=== PATIENT | male | born 1960 | race Caucasian/White ===

== ENCOUNTER 2017-07-29 08:00 | Outpatient (CLI) | payer MEDICAID ==
[2017-07-29 18:22] LABS: BILIRUBIN,URINE NEGATIVE (NEGATIVE); GLUCOSE, URINE (UA) NEGATIVE (NEGATIVE); KETONES,URINE (UA) NEGATIVE (NEGATIVE); LEUKOCYTE ESTERASE, URINE NEGATIVE (NEGATIVE); NITRITE,URINE NEGATIVE (NEGATIVE); OCCULT BLOOD,URINE LARGE (NEGATIVE); PROTEIN,URINE 30 mg/dL (NEGATIVE); UROBILINOGEN,URINE 0.2 (NORMAL) E.U./dL (NORMAL)
[2017-07-29 18:40] LABS: AMORPHOUS SEDIMENT,UR Marked /LPF; BACTERIA,URINE Few /HPF (None Seen); CLARITY,URINE CLOUDY (CLEAR); SQUAMOUS EPITHELIAL CELL,UR FEW Squamous (<= Few)
== END 2017-07-29 08:01 | disposition home or self-care (01) ==
LOC: LAB.R 08:00
PROVIDERS: ATTEND Nurse Practitioner Family
DX: R31.9 Hematuria, unspecified (principal); R39.15 Urgency of urination
CPT/HCPCS: 81001

== ENCOUNTER 2020-03-11 09:05 | Day surgery (SDC) | payer MEDICAID ==
[2020-03-11] MEDS ORDERED: PROPOFOL 200 MG/20 ML VIAL IVP ONE (09:06)
[2020-03-11] MEDS ORDERED: fentaNYL 100 MCG/2 ML VIAL IVP ONE (09:06)
[2020-03-11] MEDS ORDERED: KETAMINE 500 MG/10 ML VIAL IVP ONE (09:06)
[2020-03-11] MEDS ORDERED: LIDOCAINE-MPF 2% 5 ML VIAL IM ONE (09:06)
[2020-03-11] MEDS ORDERED: LACTATED RINGERS 1,000 ML IV ONE ×2 (09:10→10:56)
[2020-03-11] MEDS ORDERED: METOCLOPRAMIDE 10 MG/2 ML VIAL IVP PRN (09:29)
[2020-03-11] MEDS ORDERED: ONDANSETRON 4 MG/2 ML VIAL IVP PRN (09:29)
[2020-03-11] MEDS ORDERED: MORPHINE 2 MG/ML CARPUJECT IVP PRN (09:29)
[2020-03-11] MEDS ORDERED: NALOXONE 0.4 MG/ML VIAL IVP PRN (09:29)
[2020-03-11] MEDS ORDERED: ATROPINE ABBOJECT 1 MG/10 ML SYRINGE IVP PRN (09:29)
[2020-03-11] MEDS ORDERED: ePHEDrine 50 MG/ML VIAL IVP PRN (09:29)
--- NOTE | 2020-03-11 09:29 | ANESTHESIA ---
Pre-Anesthesia VS, & Labs - Diagnosis Ileostomy status, hx of rectal cancer - Procedure colonoscopy Vital Signs: Temp Pulse Resp BP Pulse Ox 36.6 C 87 16 133/85 H 96 03/11/20 09:17 03/11/20 09:17 03/11/20 09:17 03/11/20 09:17 03/11/20 09:17 Height 5 ft 9 in Weight (kg) 79.1 kg Body Mass Index 25.1 - NPO >8 hours - Lab Results Lab results reviewed: Yes Home Medications and Allergies PARoxetine HCl [Paxil] 10 mg PO DAILY 04/14/15 Allergies/Adverse Reactions: Allergies Allergy/AdvReac Type Severity Reaction Status Date / Time No Known Drug Allergies Allergy Verified 11/23/19 15:13 Anes History & Medical History - Anesthetic History Anesthesia Complications: reports: No previous complications Family history of Anesthesia Complications: Denies Family history of Malignant Hyperthermia: Denies - Medical History Cardiovascular: reports: None Pulmonary: reports: None Gastrointestinal: reports: GI bleed, Colon polyps, Hemorrhoids, Other Urinary: reports: Kidney stones Musculoskeletal: reports: None Endocrine/Autoimmune: reports: None Skin: reports: None - Surgical History General: Bowel surgery Urologic: Ureterolithotomy (stones) Orthopedic: Other Exam General: Alert, Oriented x3, Cooperative, No acute distress Dental: WNL (some chipped teeth on top and bottom front) Mouth Openin Fingerbreadth Neck Mobility: Normal Mallampati classification: II Thyromental Distance: 4-6 cm Respiratory: Lungs clear, Normal breath sounds, No respiratory distress, No accessory muscle use Cardiovascular: Regular rate, Normal S1, Normal S2, No murmurs Plan Anesthesia Type: MAC Consent for Procedure(s) Verified and Reviewed: Yes Code Status: Attempt Resuscitation ASA classification: 2-Mild systemic disease Is this case an emergency?: No
[2020-03-11] MEDS ORDERED: LACTATED RINGERS 1,000 ML IV SCH (10:00)
[2020-03-11] MEDS: fentaNYL 100 MCG/2 ML VIAL IVP PRN ×2 (11:11→11:43)
[2020-03-11] MEDS ORDERED: fentaNYL 100 MCG/2 ML VIAL ONE (11:14)
[2020-03-11] MEDS ORDERED: HYDROmorphone 1 MG/ML CARPUJECT ONE (11:15)
[2020-03-11] MEDS: HYDROmorphone 0.5 MG/0.5 ML SYRINGE IVP PRN ×2 (11:20→11:30)
--- NOTE | 2020-03-11 11:26 | ANESTHESIA POST OP EVALUATION ---
Anesthesia Post Eval - Post Anesthesia Eval Vitals: Last Vital Signs Temp 36.6 C 03/11/20 09:17 Pulse 87 03/11/20 09:17 Resp 16 03/11/20 09:17 BP 133/85 H 03/11/20 09:17 Pulse Ox 96 03/11/20 09:17 CV Function Including HR & BP: positive: Stable Pain Control: positive: Satisfactory Nausea & Vomiting: positive: Negative Mental Status: positive: Patient Participates Respiratory Status: Airway Patent Hydration Status: Satisfactory Anesthesia Complications: positive: None
--- NOTE | 2020-03-11 11:48 | XRAY Report ---
PROCEDURE: Abdomen 1 View X-Ray INDICATIONS: diagnostic post colonoscopy TECHNIQUE: 1 view of the abdomen were acquired. COMPARISON: Correlation is made with prior CT examination 04/07/2018. FINDINGS: Surgical changes and devices: A right lower quadrant postoperative clips can be seen. There is a rect al in the stomach staple line. Bowel: No pneumoperitoneum. The bowel gas pattern is normal. Soft tissues: No masses; visualized solid organ contours appear normal in size. No suspicious abdom inal calcifications. Bones: No suspicious bony abnormalities. Age-appropriate degenerative changes are seen. Minimal de xtroconvex cervical lumbar sclerotic curvature is seen. IMPRESSION: No significant post colonoscopy abnormality is seen by plain film. If clinically appropr iate, please consider a follow-up CT. There is a right lower quadrant clip seen. A rectal anastomotic staple line is seen. Reviewed by: Aron Carreno MD on 03/11/2020 10:46 AM REAGAN Approved by: Aron Carreno MD on 03/11/2020 10:46 AM [id number] Station ID: [id number]
[2020-03-11 12:32] VITALS: BP 136/76
== END 2020-03-11 09:06 | disposition home or self-care (01) ==
LOC: SDS 09:05
PROVIDERS: ATTEND Surgery
DX: Z08 Encounter for follow-up examination after completed treatment for malignant neoplasm (principal); Z90.49 Acquired absence of other specified parts of digestive tract; Z85.048 Personal history of other malignant neoplasm of rectum, rectosigmoid junction, and anus; Z93.2 Ileostomy status; Z93.3 Colostomy status; Z98.0 Intestinal bypass and anastomosis status; K52.89 Other specified noninfective gastroenteritis and colitis
CPT/HCPCS: 45378; 74018; J1170; J7120

== ENCOUNTER 2024-02-29 23:03 | Outpatient (CLI) | payer MEDICAID | END 2024-02-29 23:04 | disposition critical access hospital (66) | LOC: EMS 23:03 | DX: R10.32 Left lower quadrant pain (principal); M54.50 Low back pain, unspecified; R11.2 Nausea with vomiting, unspecified; I10 Essential (primary) hypertension; Z93.3 Colostomy status | CPT/HCPCS: A0425; A0427; A0999 ==

== ENCOUNTER 2024-02-29 23:31 | Emergency (ER) | payer MEDICAID ==
--- NOTE | 2024-02-29 23:38 | ED Physician Documentation ---
History of Present Illness - Stated complaint Stated Complaint: LEFT FLANK PAIN - History obtained from History obtained from: Patient - Additonal information Additional information: HPI from patient. Patient c/o left-sided abdominal pain, sudden onset while at home at rest approximately 3 hours [employer]. No inciting event. He denies h/o similar symptoms. The pain was waxing and waning and he took a bath thinking this might help but the pain became worse and now radiating to left flank. He then called 911. Shortly before EMS arrival, patient says he induced vomiting hoping this would help; after vomiting he felt much improved. Past medical history includes colorectal CA, has ileostomy due to this. He is noticing during this HPI that he has far less stool output into the ostomy bag than he expected. Had brief nausea, vomiting when pain was most severe. PD PAST MEDICAL HISTORY - Past Medical History Cardiovascular: None Respiratory: None Endocrine/Autoimmune: None GI: GI bleed, Colon polyps, Hemorrhoids, Other : Kidney stones HEENT: None Psych: Depression, Anxiety Musculoskeletal: None Derm: None - Past Surgical History General: Bowel surgery Ortho: Other - Present Medications Home Medications: Ambulatory Orders Medication Instructions Recorded Confirmed PARoxetine HCL [Paxil] 20 mg PO DAILY #30 tablet 11/20/21 12/23/23 Tamsulosin [Flomax] 0.4 mg PO DAILY #10 cap 03/01/24 oxyCODONE [Roxicodone] 5 - 10 mg PO Q6H PRN #20 tablet 03/01/24 - Allergies Allergies/Adverse Reactions: Allergies Allergy/AdvReac Type Severity Reaction Status Date / Time No Known Drug Allergies Allergy Verified 02/29/24 23:42 PD ED PE NORMAL - Vitals Vital signs reviewed: Yes - General General: Alert and oriented X 3, No acute distress, Well developed/nourished - HEENT HEENT: Moist mucous membranes - Cardiac Cardiac: RRR, No murmur - Respiratory Respiratory: No respiratory distress, Clear bilaterally - Abdomen Abdomen: Normal bowel sounds, Soft, Non tender, Non distended, Other (ostomy bag in place, no stool nor gas in ostomy bag) Results - Vitals Vitals: Vital Signs - 24 hr 02/29/24 03/01/24 03/01/24 23:37 00:17 02:00 Temperature 36.4 C L Heart Rate 73 80 68 Respiratory 19 18 18 Rate Blood Pressure 180/104 H 162/91 H 169/99 H O2 Saturation 97 98 99 03/01/24 06:38 Temperature Heart Rate 79 Respiratory 18 Rate Blood Pressure 139/87 H O2 Saturation 95 Oxygen O2 Source Room air - Labs Labs: Laboratory Tests 02/29/24 02/29/24 03/01/24 23:52 23:52 02:32 WBC 8.6 RBC 4.47 L Hgb 13.9 L Hct 41.4 L MCV 92.6 MCH 31.1 H MCHC 33.6 RDW 13.7 Plt Count 402 MPV 9.1 Neut # (Auto) 7.2 H Lymph # (Auto) 0.7 L Crawford # (Auto) 0.7 Eos # (Auto) 0.0 Baso # (Auto) 0.1 Absolute Nucleated RBC 0.00 Nucleated RBC % 0.0 Sodium 138 Potassium 4.3 Chloride 101 Carbon Dioxide 24 Anion Gap 13.0 BUN 11 Creatinine 1.1 Estimated GFR (MDRD) 68 L Glucose 142 H Calcium 9.5 Total Bilirubin 0.6 AST 18 ALT 15 Alkaline Phosphatase 66 Total Protein 6.5 Albumin 4.5 Globulin 2.0 L Albumin/Globulin Ratio 2.3 H Lipase 12 Urine Color YELLOW Urine Clarity CLEAR Urine pH 6.5 Ur Specific [place] 1.010 Urine Protein NEGATIVE Urine Glucose (UA) NEGATIVE Urine Ketones NEGATIVE Urine Occult Blood MODERATE H Urine Nitrite NEGATIVE Urine Bilirubin NEGATIVE Urine Urobilinogen 0.2 (NORMAL) Ur Leukocyte Esterase TRACE H Urine RBC 6-10 H Urine WBC 0-3 Ur Squamous Epith Cells NONE SEEN Urine Bacteria None Seen Ur Microscopic Review INDICATED Urine Culture Comments INDICATED - Rads (name of study) CT A/P Relevant Findings:: Prelim report reviewed, See rad report PD Medical Decision Making - ED course Complexity details: reviewed results, re-evaluated patient, considered differential, d/w patient ED course: No concerning nor diagnostic findings on CBC, ER abdominal panel. UA with 6-10 RBC/hpf. CT A/P shows 3mm calculus in proximal left ureter with mild left hydronephrosis. He is in NAD throughout ED stay, the pain having nearly resolved shortly [employer]. Results d/w patient. He is given 0.4 mg tamsulosin PO, take-home pack of percocet, and rx for both of these medications electronically submitted to patient's pharmacy of choice. Return precautions reviewed, advised to seek follow up with urology. Departure - Departure Disposition: 01 Home, Self Care Clinical Impression: Renal colic on left side Condition: Good Instructions: ED Stone Renal W Colic Follow-Up: New Quezada MD [Provider Admit Priv/Credential] - Prescriptions: Tamsulosin [Flomax] 0.4 mg PO DAILY #10 cap oxyCODONE [Roxicodone] 5 - 10 mg PO Q6H PRN #20 tablet PRN Reason: Pain >8 Comments: The CT scan shows a 3 mm left-sided kidney stone. This would account for your symptoms. I have electronically submitted prescriptions for oxycodone (narcotic/opiate pain medication) and [facility] [place]. The tamsulosin increases the chances that you will pass the kidney stone (without needing a procedure) and can help decrease the time it takes to pass the kidney stone. You should seek follow-up with a urologist. Within these discharge instructions is the name, office address, and office phone number for the on-call urologist for [facility] (Dr. Quezada). You can contact that office to see if they can accommodate a follow-up appointment. If this cannot be arranged, you can instead contact your primary care provider and/or your insurance provider to inquire about the referral process to a urologist. I am prescribing a short course of narcotic pain medication for you. These are potentially dangerous and addictive medications that should be used carefully. These medications may constipate you. Take an cjxm-tvb-tivrdvl stool softener (docusate) twice daily with plenty of water while taking these medications. If you go 24 hours without a bowel movement, take [id number] miralax, per package instructions. Do not drink or drive while taking these medications. If you received narcotic or sedating medications while in the emergency department, do not drive for 24 hours. Store this medication in a safe, secure place and out of reach of children. It is a violation of federal law to give or sell this medication to another person or to use in a manner other than prescribed. The ED will not refill narcotic prescriptions, including prescriptions lost or stolen. To dispose of unwanted medications: 1. [facility] at [address] in [place] has a medication drop box. They accept prescription medications (in pill form) Saturday through Saturday 9:00 a.m. to 5:00 p.m. 2. [facility] [employer] accepts prescription medications (in pill form only) for disposal year round. Call for more information. 3. Contact the [facility] for the next [facility] sponsored prescription drug collection event. , [phone], or [phone]; Forms: PCP List Discharge Date/Time: 03/01/24 07:29
[2024-03-01 01:09] LABS: BASOPHILS # (AUTO) 0.1 10^3/uL (0.0-0.1); BASOPHILS % (AUTO) 0.6 %; EOSINOPHILS % (AUTO) 0.1 %; HCT - HEMATOCRIT 41.4 % (42.0-52.0); HGB - HEMOGLOBIN 13.9 g/dL (14.0-18.0); LYMPHOCYTES # (AUTO) 0.7 10^3/uL (1.5-3.5); LYMPHOCYTES % (AUTO) 7.6 %; MEAN CORPUSCULAR HEMOGLOBIN 31.1 pg (27.0-31.0); MEAN CORPUSCULAR HGB CONC 33.6 g/dL (32.0-36.0); MEAN CORPUSCULAR VOLUME 92.6 fL (80.0-94.0); MEAN PLATELET VOLUME 9.1 fL (7.4-11.4); MONOCYTES # (AUTO) 0.7 10^3/uL (0.0-1.0); MONOCYTES % (AUTO) 7.8 %; NEUTROPHILS # (AUTO) 7.2 10^3/uL (1.5-6.6); NEUTROPHILS % (AUTO) 83.3 %; PLT - PLATELET COUNT 402 10^3/uL (130-450); RED BLOOD COUNT 4.47 10^6/uL (4.70-6.10); RED CELL DISTRIBUTION WIDTH 13.7 % (12.0-15.0); WHITE BLOOD COUNT 8.6 x10^3/uL (4.8-10.8)
[2024-03-01] MEDS ORDERED: iohexoL-300 100 ML VIAL ONE (01:19)
[2024-03-01 01:44] LABS: ALBUMIN 4.5 g/dL (3.2-5.5); ALBUMIN/GLOBULIN RATIO 2.3 (1.0-2.2); BILIRUBIN,TOTAL 0.6 mg/dL (0.2-1.0); CALCIUM 9.5 mg/dL (8.5-10.3); CREATININE 1.1 mg/dL (0.6-1.3); POTASSIUM 4.3 mmol/L (3.5-4.5); TOTAL PROTEIN 6.5 g/dL (6.4-8.9)
[2024-03-01] MEDS: iohexoL-300 100 ML VIAL IVP ONE (02:14)
[2024-03-01 02:38] LABS: BILIRUBIN,URINE NEGATIVE (NEGATIVE); GLUCOSE, URINE (UA) NEGATIVE (NEGATIVE); KETONES,URINE (UA) NEGATIVE (NEGATIVE); LEUKOCYTE ESTERASE, URINE TRACE (NEGATIVE); NITRITE,URINE NEGATIVE (NEGATIVE); OCCULT BLOOD,URINE MODERATE (NEGATIVE); PH,URINE 6.5 PH (5.0-7.5); PROTEIN,URINE NEGATIVE (NEGATIVE); UROBILINOGEN,URINE 0.2 (NORMAL) E.U./dL (NORMAL)
[2024-03-01 02:47] LABS: CLARITY,URINE CLEAR (CLEAR)
[2024-03-01 02:48] LABS: BACTERIA,URINE None Seen /HPF (None Seen); SQUAMOUS EPITHELIAL CELL,UR NONE SEEN (<= Few); WBC,URINE 0-3 /HPF (0-3)
[2024-03-01] MEDS: oxyCODONE/ACET 5/325 Prepack 4 PO STA (03:15)
[2024-03-01] MEDS: TAMSULOSIN 0.4 MG CAPSULE PO STA (03:15)
[2024-03-01 06:47] VITALS: BP 139/87; O2SAT 95
--- NOTE | 2024-03-01 12:27 | CT Report ---
PROCEDURE: Abdomen/Pelvis W INDICATIONS: left abd. pain TECHNIQUE: Helical axial CT of the abdomen and pelvis was obtained after intravenous contrast adminis tration and reformatted in multiple planes. Radiation dose reduction was achieved using automated exp osure control or adjustment of mA and/or kV according to patient size. COMPARISON: 04/07/2018 FINDINGS: Lower thorax: Minimal dependent atelectatic atelectasis No hiatal hernia. Liver: Normal in size and attenuation. No contour deformity present. Biliary system: No calcified cholelithiasis or pericholecystic inflammation. No evidence of bile du ct dilatation. Pancreas: Unremarkable without mass or inflammation evident. Spleen: Normal in size and density. Adrenals: Normal morphology and density. Reproductive system: Unremarkable as visualized. Urinary system: Small nonobstructing calculi noted upper pole right kidney. There is a 3 mm calculus the left proximal ureter resulting in mild left hydronephrosis and perinephric stranding. No right h ydronephrosis. Urinary bladder unremarkable. Gastrointestinal system: Right-sided diverging loop ileostomy. No obstruction. Fatty marrow replacem ent of the colon reflects a chronic inflammatory change sequela. Sigmoidectomy. No obstruction. Peritoneal spaces: No mesenteric or retroperitoneal adenopathy. No free air. No free fluid. Vasculature: Atherosclerotic calcification of the abdominal aorta without evidence of aneurysm. Abdominal wall: Abdominal wall is intact without evidence of ventral or inguinal hernias. Musculoskeletal: Normal bone mineralization. No acute fractures. Right iliac donor sites. Degenerat yoli disc disease and arthropathy lower lumbar spine IMPRESSION: Left-sided obstructive uropathy resulting from a 3 mm proximal left ureteral calculus. Additional nonobstructing right renal calculus. No right-sided hydronephrosis. Right-sided diverting ileostomy Reviewed by: Gary Vega MD on 03/01/2024 11:26 AM REAGAN Approved by: Gary Vega MD on 03/01/2024 11:26 AM AKDT Station ID: [id number]
== END 2024-03-01 07:29 | disposition home or self-care (01) ==
LOC: EDUNIT# → ED 23:31
DX: N13.2 Hydronephrosis with renal and ureteral calculous obstruction (principal)
CPT/HCPCS: 36415; 74177; 80053; 81001; 83690; 85025; 87086; 99284; A9270; Q9967; 81003

== ENCOUNTER 2024-03-17 15:52 | Outpatient (CLI) | payer MEDICAID | END 2024-03-17 23:59 | disposition critical access hospital (66) | LOC: EMS 15:52 | DX: R10.32 Left lower quadrant pain (principal); R11.0 Nausea; Z93.3 Colostomy status | CPT/HCPCS: A0425; A0427; A0999 ==

== ENCOUNTER 2024-03-17 16:14 | Emergency (ER) | payer MEDICAID ==
--- NOTE | 2024-03-17 16:55 | ED Physician Documentation ---
History of Present Illness - Stated complaint Stated Complaint: ABD PX - Chief complaint Chief Complaint: Abd Pain - History obtained from History obtained from: Patient, EMS - Additonal information Additional information: The patient comes to the emergency department chief complaint of lower abdominal pain mainly located on the left that started this morning suddenly. The patient had been feeling fine and states that the pain came in waves on and off throughout the day. He states that this had a "movement" quality to it and that although he was diagnosed with kidney stones a couple of weeks ago, it felt somewhat different. He suspects it was more of an intestinal pain. He has an ileostomy which he states has been functioning well and demonstrating good output. The ileostomy has been in place for about 9 years since a diagnosis of colon cancer. The patient has been offered reanastomosis but has put this off over the years, due to change in surgeon and not wanting to deal with another surgery. However, he states he is thinking he would like to have her anastomosis after all. He states that the pain was intermittent throughout the day and finally, he had several episodes of gas and fluid from his rectum. He states the last one was the biggest output and occurred just as the medics got there and that since then, he has been feeling a lot better. He states that it is not unheard of for him to have some output from his rectum previously. He denies any fevers or chills. No nausea. He has otherwise been doing well. No other complaints at this time. PD PAST MEDICAL HISTORY - Past Medical History Cardiovascular: None Respiratory: None Endocrine/Autoimmune: None GI: GI bleed, Colon polyps, Hemorrhoids, Other : Kidney stones HEENT: None Psych: Depression, Anxiety Musculoskeletal: None Derm: None - Past Surgical History Past Surgical History: Yes General: Bowel surgery Ortho: Other - Present Medications Home Medications: Ambulatory Orders Medication Instructions Recorded Confirmed PARoxetine HCL [Paxil] 20 mg PO DAILY #30 tablet 11/20/21 12/23/23 Tamsulosin [Flomax] 0.4 mg PO DAILY #10 cap 03/01/24 oxyCODONE [Roxicodone] 5 - 10 mg PO Q6H PRN #20 tablet 03/01/24 - Allergies Allergies/Adverse Reactions: Allergies Allergy/AdvReac Type Severity Reaction Status Date / Time No Known Drug Allergies Allergy Verified 02/29/24 23:42 - Social History Does the pt smoke?: No Smoking Status: Never smoker Does the pt have substance abuse?: No - POLST Patient has POLST: No PD ED PE NORMAL - Vitals Vital signs reviewed: Yes - General General: Alert and oriented X 3, No acute distress - HEENT HEENT: Atraumatic, EOMI, Moist mucous membranes - Neck Neck: Supple, no meningeal sign - Cardiac Cardiac: RRR, No murmur, Strong equal pulses - Respiratory Respiratory: No respiratory distress, Clear bilaterally - Abdomen Abdomen: Soft, Non tender, Non distended, Other (Ileostomy with healthy- appearing tissue, brownish output.) - Derm Derm: Normal color, Warm and dry, No rash - Extremities Extremities: No deformity - Neuro Neuro: Other (Alert, grossly oriented.) - Psych Psych: Normal mood, Normal affect Results - Vitals Vitals: Vital Signs - 24 hr 03/17/24 03/17/24 16:20 18:30 Temperature 36.6 C 36.6 C Heart Rate 96 93 Respiratory 18 16 Rate Blood Pressure 143/109 H 141/97 H O2 Saturation 94 95 Oxygen O2 Source Room air - Rads (name of study) CT abdomen and pelvis no contrast Relevant Findings:: Final report received, See rad report (2 mm left ureteral calculus just recently passed into the bladder. No other acute findings.) PD Medical Decision Making - ED course Complexity details: reviewed old records, reviewed results, re-evaluated patient, considered differential, d/w patient ED course: The patient was pain-free upon arrival in the emergency department and remained so. I sent the pt for noncontrast CT scan of the abdomen and pelvis,which showed a stone that had just passed into the bladder on the left. I discussed the findings with the patient. He does not have any other concerning findings on CT and felt he was stable for discharge home. We have discussed the need for follow-up and the usual indications for return. Departure - Departure Disposition: 01 Home, Self Care Clinical Impression: Kidney stone on left side Condition: Stable Instructions: ED Stone Renal Passed Comments: Your CT scan shows that you have just very recently passed the left-sided kidney stone into the bladder. It may have been descending silently and finally now gone through passage into the bladder, causing your pain. There is no other abnormality or concerning finding on your CT scan. You may follow-up with urology as needed. You have 2 very tiny stones in your right kidney which may or may not pass at some point in time. Forms: PCP List
--- NOTE | 2024-03-17 18:07 | CT Report ---
PROCEDURE: Abdomen/Pelvis WO INDICATIONS: L flank pain TECHNIQUE: A CT scan of the abdomen and pelvis was performed without the use of intravenous contrast. Images we re recorded and evaluated at appropriate window settings. Reformats: coronal and sagittal. For radiat ion dose reduction, the following was used: automated exposure control, adjustment of mA and/or kV ac cording to patient size. COMPARISON: CT abdomen and pelvis 03/01/2024. FINDINGS: Image quality: Diagnostic. Lower chest: Mild emphysematous change. No pleural effusion. Liver: No contour-deforming mass. Gallbladder: No radiopaque stones or wall thickening. Biliary tree: No intrahepatic or extrahepatic dilation, accounting for age. Spleen: No splenomegaly. Pancreas: No pancreatic ductal dilation. Adrenals: No adrenal nodule. Kidneys and ureters: No significant hydronephrosis. Left pelvocaliectasis is nearly resolved. The pre viously seen obstructing calculus measuring 0.3 cm in the left ureter has passed into the urinary roz dder. No contour-deforming mass. 2 punctate nonobstructing right kidney stones. Stomach, bowel and peritoneum: Rectal anastomosis. Mild stranding about the transverse colon, (2/55). Increased conspicuity of the proximal colonic wall fat. Right lower quadrant ileostomy. The appendix is not dilated. No small bowel obstruction. No pathologic free fluid. Lymph nodes: No central or retroperitoneal adenopathy. Vessels: No infrarenal aortic aneurysm. Reproductive organs: Unremarkable. Bladder: Bladder wall thickness is normal, accounting for underdistention. No calcified bladder stone s. Pelvic lymph nodes: No adenopathy by size criteria. Bones: No aggressive osseous abnormality. Multilevel DDD. Other: No significant ventral or inguinal hernia. IMPRESSION: 1. The previously seen obstructing left ureteral calculus has now passed into the urinary bladder. Th ere is nearly resolved left pelvocaliectasis. 2. Two punctate nonobstructing right kidney stones. 3. Mild stranding about the transverse colon in the left upper quadrant. Findings most consistent wit h a mild colitis. 4. Right lower quadrant ileostomy. No bowel obstruction. Reviewed by: Jay Anderson MD on 03/17/2024 6:06 PM PDT Approved by: Jay Anderson MD on 03/17/2024 6:06 PM PDT Station ID: [id number]
[2024-03-17 18:37] VITALS: BP 141/97; O2SAT 95
== END 2024-03-17 18:35 | disposition home or self-care (01) ==
LOC: EDUNIT# → ED 16:14
DX: N20.0 Calculus of kidney (principal); Z85.038 Personal history of other malignant neoplasm of large intestine; Z93.2 Ileostomy status
CPT/HCPCS: 99283; 99284